=== PATIENT | female | born 1965 | race Caucasian/White ===

== ENCOUNTER 2017-04-20 21:20 | Emergency (ER) | payer OTHER ==
[2017-04-20 21:35] VITALS: BP 149/72; PULSE 79; TEMP 97.6; BMI 25.7
--- NOTE | 2017-04-20 21:41 | PDOC ---
History of Present Illness - General Chief Complaint: Allergic Reaction Stated Complaint: Allergic Reaction Time Seen by Provider: 04/20/17 21:40 - History of Present Illness Initial Comments: 51 year old female with PMH of bilateral shoulder pain and hypothyroidism presenting with adverse reaction after depomedrol shot in shoulders bilaterally. Patient was at [facility] and received two shots that she was told were mixed with some other substance but is unsure of the name. 15 minutes after receiving the medication she had restless legs, restless hands, and some facial tingling. She was given an epinephrine shot and 125 of solumedrol at [facility] and EMS was called. On arrival to the ED her symptoms were completely resolved. She was never short of breath, had facial/ tongue swelling, or had any pruritus. Of note, she has had a corticosteroid shot in the same facility in the past without any reaction. She has allergies only to antibiotics. Denies any fevers, chills, nausea, vomiting, diarrhea, constipation, chest pain, SOB, respiratory difficulty, rash, itching, or other sick symptoms. 04/20/17 22:06 Past History - Past Medical History Allergies/Adverse Reactions: Allergies Allergy/AdvReac Type Severity Reaction Status Date / Time No Known Allergies Allergy Verified 04/20/17 21:33 - Suicide/Smoking/Psychosocial Hx Smoking History: Never smoked Have you smoked in the past 12 months: No Information on smoking cessation initiated: No Hx Alcohol Use: No Drug/Substance Use Hx: No Review of Systems - Review of Systems Constitutional: No: Chills, Diaphoresis, Fever HEENTM: No: Eye Pain, Blurred Vision Respiratory: No: Cough, Shortness of Breath, Wheezing, Productive cough Cardiac (ROS): No: Edema, Irregular Heart Rate, Lightheadedness, Palpitations, Syncope ABD/GI: No: Constipated, Diarrhea, Nausea : No: Dysuria, Discharge Musculoskeletal: Yes: Joint Pain. No: Back Pain, Gout Integumentary: No: Bruising, Pruritus, Rash, Sweating Neurological: Yes: Numbness, Paresthesia. No: Headache, Weakness Psychiatric: No: Anxiety, Depression *Physical Exam - Vital Signs Last Vital Signs Temp Pulse Resp BP Pulse Ox 97.6 F 79 20 149/72 99 04/20/17 21:33 04/20/17 21:33 04/20/17 21:33 04/20/17 21:33 04/20/17 21:33 - Physical Exam General Appearance: Yes: Nourished, Appropriately Dressed. No: Apparent Distress HEENT: positive: EOMI, DAMON, Normal ENT Inspection, Normal Voice Neck: positive: Trachea midline, Normal Thyroid, Supple. negative: Tender, Rigid Respiratory/Chest: positive: Lungs Clear, Normal Breath Sounds. negative: Chest Tender, Respiratory Distress Cardiovascular: positive: Regular Rhythm, Regular Rate. negative: Edema, Murmur Gastrointestinal/Abdominal: positive: Normal Bowel Sounds, Flat, Soft. negative : Tender Musculoskeletal: positive: Normal Inspection. negative: Decreased Range of Motion Extremity: positive: Normal Capillary Refill, Normal Inspection, Normal Range of Motion. negative: Tender Neurologic: positive: army manager II-XII NML intact, Fully Oriented, Alert, Normal Mood/ Affect, Normal Response, Motor Strength 5/5 Medical Decision Making - Medical Decision Making 51 year old female with adverse reaction to depomedrol shot. The reaction itself appears to be suspicious for acute dystonia but unclear if this was a reaction to something mixed in with the depomedrol. Patient had a previous depomedrol injection in the past without reaction. It is possible that this was a reaction to lidocaine frequently given as an additive to intra-articular steroid injections. Therefore, transient lidocaine toxicity is a possibility. Regardless, patient is well appearing now. We will administer 25 Benadryl IV and discharge home as her will drive her home. 04/20/17 22:13 *DC/Admit/Observation/Transfer Diagnosis at time of Disposition: Dystonic drug reaction - Discharge Dispostion Disposition: HOME Condition at time of disposition: Improved Admit: No - Referrals Referrals: Raquel Giang MD [Primary Care Provider] - - Patient Instructions Additional Instructions: You had an adverse reaction to your steroid injection or an additive included in the steroid injection. This does not seem like an allergic reaction but we caution you in receiving injections in the future. Please return to the Ed if you have any new or worsening symptoms including pain over the injection sites or worsening movements of your arms or legs. - Post Discharge Activity
--- NOTE | 2017-04-20 22:28 | PDOC ---
Attending Attestation - Resident Resident Name: Josie Butler - ED Attending Attestation I have performed the following: I have examined & evaluated the patient, The case was reviewed & discussed with the resident, I agree w/resident's findings & plan, Exceptions are as noted - HPI HPI: 04/20/17 22:26 <Shahid Jaquez - Last Filed: 04/20/17 22:26> - HPI HPI: 04/20/17 22:28 The patient is a 51 year old female with a significant past medical history of chronic bilateral shoulder pain and hypothyroidism who presents to the ED for evaluation of restless hands and legs, as well as, mild facial tingling about 15 minutes after receiving depomedrol injections to her shoulders at [facility] this evening. The patient was reportedly told the injections were mixed with some other substances but is unsure which substances. She states she was given an epinephrine shot and 125mg of solumedrol at the office before EMS was called. The patient reports having the corticosteroid shot in the same facility in the past without any reaction. She states she is asymptomatic in the ED now. . The patient denies chest pain, shortness of breath, headache and dizziness. The patient denies fever, chills, nausea, vomit, diarrhea and constipation. The patient denies dysuria, frequency, urgency and hematuria. - Medical Decision Making 04/20/17 22:28 Documentation prepared by Kyleigh Turner, acting as certified medical aide for Shahid Jaquez DO. <Kyleigh Turner - Last Filed: 04/20/17 22:28>
== END 2017-04-20 22:38 | disposition home or self-care (01) ==
LOC: JER 21:20
PROC: 3E033GC Introduction of Other Therapeutic Substance into Peripheral Vein, Percutaneous Approach (ICD-10-PCS; principal; 2017-04-20)
DX: G24.09 Other drug induced dystonia (principal); T50.995A Adverse effect of other drugs, medicaments and biological substances, initial encounter; Y92.532 Urgent care center as the place of occurrence of the external cause
CPT/HCPCS: 99281-25